=== PATIENT | female | born 1985 | race African-American/Black ===

== ENCOUNTER 2016-12-22 15:32 | Emergency (ER) | payer SELFPAY ==
--- NOTE | 2016-12-22 15:43 | PDOC ---
History of Present Illness - General History Source: Patient Exam Limitations: No Limitations - History of Present Illness Initial Comments: 12/22/16 16:22 Patient is a 31 year old female with a significant past medical history of who presents to the ED with complaints of left wrist pain. Patient reports pain began one week ago while lifting a dresser up a flight of stairs when sharp pain went up through arm. She reports putting the wrist in a immobilizer and wrapping for one week. She states she was unable to close hand fully after removing wrapping. Denies chest pain, SOB. Denies headache, fever. Denies nausea, vomiting. Denies any other symptoms. Allergies: None Social history: Current day smoker (1 cigarette per day). No alcohol. No illicit drugs. Surgical history: No surgical history PMD: None <Adalid Acosta - Last Filed: 12/22/16 16:22> <Lexi Khalil - Last Filed: 12/22/16 17:48> - General Chief Complaint: Pain Stated Complaint: LEFT ARM PAINPAIN Time Seen by Provider: 12/22/16 15:42 Past History <Adalid Acosta - Last Filed: 12/22/16 16:22> - Psycho/Social/Smoking Cessation Hx Anxiety: No Suicidal Ideation: No Smoking Status: Yes Smoking History: Current every day smoker Have you smoked in the past 12 months: Yes Number of Cigarettes Smoked Daily: 2 'Breaking Loose' booklet given: 08/19/15 <Lexi Khalil - Last Filed: 12/22/16 17:48> - Past Medical History Allergies/Adverse Reactions: Allergies Allergy/AdvReac Type Severity Reaction Status Date / Time No Known Allergies Allergy Verified 12/22/16 15:44 Home Medications: Ambulatory Orders No Home Medications 0 dose .ROUTE UTDICT 01/02/12 Review of Systems - Review of Systems Able to Perform ROS?: Yes Comments:: 12/22/16 16:22 GENERAL/CONSTITUTIONAL: No fever or chills. No weakness. HEAD, EYES, EARS, NOSE AND THROAT: No change in vision. No ear pain or discharge. No sore throat. CARDIOVASCULAR: No chest pain or shortness of breath. RESPIRATORY: No cough, wheezing, or hemoptysis. GASTROINTESTINAL: No nausea, vomiting, diarrhea or constipation. GENITOURINARY: No dysuria, frequency, or change in urination. MUSCULOSKELETAL: + Left wrist pain. +Left arm pain. No joint or muscle swelling. . No neck or back pain. SKIN: No rash NEUROLOGIC: No headache, vertigo, loss of consciousness, or change in strength/ sensation. ENDOCRINE: No increased thirst. No abnormal weight change. HEMATOLOGIC/LYMPHATIC: No anemia, easy bleeding, or history of blood clots. ALLERGIC/IMMUNOLOGIC: No hives or skin allergy. All Other Systems: Reviewed and Negative <Adalid Acosta - Last Filed: 12/22/16 16:22> *Physical Exam - Vital Signs Last Vital Signs Temp Pulse Resp BP Pulse Ox 99.1 F 101 H 18 157/85 99 12/22/16 15:34 12/22/16 15:34 12/22/16 15:34 12/22/16 15:34 12/22/16 15:34 - Physical Exam Comments: 12/22/16 16:22 GENERAL: Awake, alert, and fully oriented, in no acute distress HEAD: No signs of trauma EYES: PERRLA, EOMI, sclera anicteric, conjunctiva clear ENT: Auricles normal inspection, hearing grossly normal, nares patent, oropharynx clear without exudates. Moist mucosa NECK: Normal ROM, supple, no lymphadenopathy, JVD, or masses LUNGS: Breath sounds equal, clear to auscultation bilaterally. No wheezes, and no crackles HEART: Regular rate and rhythm, normal S1 and S2, no murmurs, rubs or gallops ABDOMEN: Soft, nontender, normoactive bowel sounds. No guarding, no rebound. No masses EXTREMITIES: +Left wrist neurovascularly intact. + Able to flex and extend against resistance in all four fingers and thumb in the PIP and DIP joint. + discomfort with supination, but able to actively supinate. Normal range of motion, no edema. No clubbing or cyanosis. No cords, erythema, or tenderness NEUROLOGICAL: Cranial nerves II through XII grossly intact. Normal speech, normal gait SKIN: Warm, Dry, normal turgor, no rashes or lesions noted. <Adalid Acosta - Last Filed: 12/22/16 16:22> ED Treatment Course - ADDITIONAL ORDERS Additional order review: Laboratory Results 12/22/16 03:51 Urine HCG, Qual Negative <Adalid Acosta - Last Filed: 12/22/16 16:22> Medical Decision Making - Medical Decision Making 12/22/16 17:21 Pt presents to the ED complaining of a one week history of L wrist and hand pain. Patient reports straining her hand and wrist while carrying a dresser. States that since the injury, she has been having pain of her hand and forearm that is worst in her thumb. Denies other injuries. Patient has been using a wrist immobilizer, but continuing to do her daily activities. Has pain with complete flexion of all 4 fingers and thumb and with supination. Although she has discomfort with these motions, patient is able to do them against resistance , making tendon injury less likely. Xrays of the hand and wrist are negative for fracture on my read. Will discharge home with pain control and follow up with orthopedics for persistent symptoms. <Lexi Khalil - Last Filed: 12/22/16 17:48> *DC/Admit/Observation/Transfer - Attestations Scribe Attestion: 12/22/16 16:23 Documentation prepared by Adalid Acosta, acting as medical microbiologist for Lexi Khalil MD. <Adalid Acosta - Last Filed: 12/22/16 16:22> - Discharge Dispostion Admit: No <Lexi Khalil - Last Filed: 12/22/16 17:48> Diagnosis at time of Disposition: Left wrist sprain Qualifiers: Encounter type: initial encounter Qualified Code(s): S63.502A - Unspecified sprain of left wrist, initial encounter - Discharge Dispostion Disposition: HOME Condition at time of disposition: Good - Referrals Referrals: Trey Jacinto MD [Staff Physician] - (follow up with Dr. Jacinto if you still have pain after one week. ) - Patient Instructions Printed Discharge Instructions: Smoking Cessation, DI for Wrist Sprain Additional Instructions: return to the ED for new or changing symptoms, severe pain, unable to move your wrist, fingers or thumb. Return for worsening pain and swelling of your hand or wrist. Follow up with orthopedics if you continue to have pain after one week.
[2016-12-22 15:47] VITALS: TEMP 99.1; BMI 31.8
[2016-12-22 17:29] VITALS: BP 128/77; PULSE 70
== END 2016-12-22 17:56 | disposition home or self-care (01) ==
LOC: FER 15:32
DX: S63.502A Unspecified sprain of left wrist, initial encounter (principal); X58.XXXA Exposure to other specified factors, initial encounter; Y93.89 Activity, other specified; Y92.9 Unspecified place or not applicable
CPT/HCPCS: 73110-TC-LT; 73130-TC-LT; 84703; 99282-25

== ENCOUNTER 2018-04-17 05:03 | Emergency (ER) | payer SELFPAY ==
[2018-04-17 05:09] VITALS: BMI 32.9
[2018-04-17 05:14] VITALS: BP 126/83; PULSE 60
[2018-04-17] MEDS ORDERED: KETOROLAC TROMETHAMINE 60 MG/2 ML VIAL IM ONE (05:25)
--- NOTE | 2018-04-17 05:25 | PDOC ---
History of Present Illness - General Chief Complaint: Pain, Acute Stated Complaint: NECK PAIN X 5 DAYS Time Seen by Provider: 04/17/18 05:24 - History of Present Illness Initial Comments: This 32-year-old woman with a history of untreated thyroid issues/ uterine fibroids/glaucoma presents with neck soreness/right upper back for for a few days. Patient works as a cat and dog bather; she has frequent neck discomfort but describes more severe pain in the last few days. No known direct trauma or severe overuse. She has been using a soft foam collar with some relief until last evening when pain became more severe She had a brief episode of numbness of her right upper arm last evening; this resolved spontaneously prior to presentation.. Patient has been taking ibuprofen 800 mg 3 times a day for the last few days. Past History - Past Medical History Allergies/Adverse Reactions: Allergies Allergy/AdvReac Type Severity Reaction Status Date / Time No Known Allergies Allergy Verified 04/17/18 05:05 Home Medications: Ambulatory Orders No Home Medications 0 dose .ROUTE UTDICT 01/02/12 Tizanidine HCl 2 mg PO TID PRN #12 tablet 04/17/18 COPD: No Psychiatric Problems: Yes (anxiety,depression) Other medical history: FIBROIDS, GLAUCOMA - Suicide/Smoking/Psychosocial Hx Smoking Status: Yes Smoking History: Current every day smoker Have you smoked in the past 12 months: Yes Number of Cigarettes Smoked Daily: 2 Information on smoking cessation initiated: Yes 'Breaking Loose' booklet given: 08/19/15 Hx Alcohol Use: No Drug/Substance Use Hx: Yes (WEED TWICE A WEEK) Substance Use Type: None Review of Systems - Review of Systems Able to Perform ROS?: Yes Comments:: 12 point review of systems is negative except for what is noted in the history of present illness *Physical Exam - Vital Signs Last Vital Signs Temp Pulse Resp BP Pulse Ox 60 18 126/83 100 04/17/18 05:13 04/17/18 05:13 04/17/18 05:13 04/17/18 05:13 - Physical Exam Comments: GENERAL: Adult female, alert and oriented 3, in mild distress secondary to neck soreness HEAD: Normal with no signs of trauma. EYES: PERRLA, EOMI, sclera anicteric, conjunctiva clear. ENT: Ears normal, nares patent, oropharynx clear without exudates. Moist mucous membranes. NECK: Pain with lateral rotation of head bilaterally, supple without lymphadenopathy, JVD, or masses. No tenderness of central vertebral bodies Moderate spasm/tenderness of cervical paraspinal muscles bilaterally Mild tenderness of bilateral trapezius muscles right greater than left LUNGS: Breath sounds equal, clear to auscultation bilaterally. No wheezes, and no crackles. EXTREMITIES: Normal range of motion, no edema. No clubbing or cyanosis. No erythema, or tenderness. NEUROLOGICAL: Cranial nerves II through XII grossly intact. Normal speech. No focal neurological deficits. MUSCULOSKELETAL: Back non-tender to palpation, no CVA tenderness SKIN: Warm, Dry, normal turgor, no rashes or lesions noted. Moderate Sedation - Procedure Monitoring Vital Signs: Procedure Monitoring Vital Signs Temperature Pulse Rate 60 04/17/18 05:13 Respiratory Rate 18 04/17/18 05:13 Blood Pressure 126/83 04/17/18 05:13 O2 Sat by Pulse Oximetry (%) 100 04/17/18 05:13 Medical Decision Making - Medical Decision Making Clinical presentation could be consistent with cervical strain/muscle spasms. 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 The patient understands this. She states that she can stay out from work today Today, we will give the patient Toradol 60 mg IM with a prescription for tizanidine 2 mg up to 3 times a day as needed for muscle spasm. She should continue the local warmth to the muscles that are spasmed. She also should continue to use her soft collar as needed. Since patient does not have insurance, she is familiar with the [facility] clinic system. The patient states that she will follow-up with orthopedics/spinal clinic there. She should return to the emergency room if she has severe pain or experiences persistent weakness/numbness of her extremities *DC/Admit/Observation/Transfer Diagnosis at time of Disposition: Cervical strain Qualifiers: Encounter type: initial encounter Qualified Code(s): S16.1XXA - Strain of muscle, fascia and tendon at neck level, initial encounter - Discharge Dispostion Disposition: HOME Condition at time of disposition: Stable - Prescriptions Prescriptions: Tizanidine HCl 2 mg PO TID PRN #12 tablet PRN Reason: Muscle Spasms - Referrals - Patient Instructions Printed Discharge Instructions: DI for Neck Pain Additional Instructions: Local warmth to area as discussed use soft collar as needed Continue ibuprofen as previously; always take with food Tizanidine 2 mg up to 3 times a day as needed for muscle spasm Avoid strenuous activity of the upper body for the next 5-7 days; no work today Follow-up [facility] clinic system as discussed Return to ER if you have persistent, severe pain or experiences weakness/ persistent numbness of arms - Post Discharge Activity
== END 2018-04-17 05:35 | disposition home or self-care (01) ==
LOC: FER 05:03
PROC: 3E0233Z Introduction of Anti-inflammatory into Muscle, Percutaneous Approach (ICD-10-PCS; principal; 2018-04-17)
DX: S16.1XXA Strain of muscle, fascia and tendon at neck level, initial encounter (principal); X58.XXXA Exposure to other specified factors, initial encounter; Y93.9 Activity, unspecified; Y92.9 Unspecified place or not applicable
CPT/HCPCS: 99281-25

== ENCOUNTER 2018-09-18 08:07 | Emergency (ER) | payer SELFPAY | END 2018-09-18 08:53 | disposition home or self-care (01) | LOC: FER 08:07 ==

== ENCOUNTER 2019-10-17 00:18 | Emergency (ER) | payer SELFPAY ==
[2019-10-17 00:24] VITALS: BP 148/103; PULSE 93; TEMP 99.1; BMI 31.8
[2019-10-17] MEDS ORDERED: SODIUM CHLORIDE 1,000 ML IV ONE (00:39)
[2019-10-17] MEDS ORDERED: ONDANSETRON 4 MG/2 ML VIAL IVPB ONE (00:39)
--- NOTE | 2019-10-17 00:41 | PDOC ---
History of Present Illness - General Chief Complaint: Nausea/Vomiting Stated Complaint: NAUSEA Time Seen by Provider: 10/17/19 00:33 History Source: Patient Exam Limitations: No Limitations - History of Present Illness Initial Comments: 10/17/19 00:36 This is a 34-year-old female who comes in complaining of some nausea and vomiting x1 day. Patient said that she does not have any abdominal pain. But then clarified it when she said she does have large uterine fibroids and they can be painful at times. Patient says she also has a history of anemia and actually is here today because she wants to make sure her blood counts are normal to low. Patient denies any fever, chills, diarrhea Allergies: as per nursing notes Past Medical History: Uterine fibroids per HPI Social history: Lives with family. No smoking. No alcohol. No illicit drugs. Surgical history: None General: No fevers or chills, no weakness, no weight loss HEENT: No change in vision. No sore throat,. No ear pain CardioVascular: no chest discomfort. No shortness of breath Respiratory:No cough, or wheezing. Gastrointestinal: + nausea, +vomiting, no diarrhea or constipation, No rectal bleeding Genitourinary: No dysuria, hematuria, or frequency Musculoskeletal: No joint or muscle pain or swelling Neurologic: No headache, vertigo, dizziness or loss of consciousness Psychiatric: nor depression Skin: No rashes or easy bruising Endocrine: no increased thirst or abnormal weight change Allergic: no skin or latex allergy All other systems reviewed and normal GENERAL: The patient is awake, alert, and fully oriented, in no acute distress. HEENT:Head is normal with no signs of trauma. Eyes: Pupils equal, round and reactive to light, Ears, and Throat are normal. Neck is supple. No Lymphade nopathy. EXTREMITIES:atraumatic, Normal range of motion, no edema. NEUROLOGICAL: Normal speech, normal gait. PSYCH: Normal mood, normal affect. SKIN: Warm, Dry, normal turgor, no rashes or lesions noted. Patient patient feels better after fluids and Zofran. Patient has had no further vomiting able to tolerate p.o.'s patient is not anemic patient discharged we will follow-up with her primary care doctor Past History - Medical History Allergies/Adverse Reactions: Allergies Allergy/AdvReac Type Severity Reaction Status Date / Time No Known Allergies Allergy Verified 04/17/18 05:05 Home Medications: Ambulatory Orders Ibuprofen 600 mg PO PRN PRN 10/17/19 Anemia: Yes COPD: No Disorders: Yes (FIBROIDS) Psychiatric Problems: Yes (anxiety,depression) - Psycho-Social/Smoking History Smoking Status: Yes Smoking History: Never smoked Have you smoked in the past 12 months: Yes Number of Cigarettes Smoked Daily: 2 'Breaking Loose' booklet given: 08/19/15 *Physical Exam - Vital Signs Last Vital Signs Temp Pulse Resp BP Pulse Ox 99.1 F 93 H 16 148/103 H 100 10/17/19 00:20 10/17/19 00:20 10/17/19 00:20 10/17/19 00:20 10/17/19 00:20 ED Treatment Course - LABORATORY CBC & Chemistry Diagram: 10/17/19 00:40 10/17/19 00:40 Discharge - Discharge Information Problems reviewed: Yes Clinical Impression/Diagnosis: Nausea & vomiting Qualifiers: Vomiting type: unspecified Vomiting Intractability: non-intractable Qualified Code(s): R11.2 - Nausea with vomiting, unspecified Condition: Stable Disposition: HOME - Admission No - Follow up/Referral - Patient Discharge Instructions Additional Instructions: Return to the emergency department immediately with ANY new, persistent or wo rsening symptoms. Continue any medications as previously prescribed by your physician. You should follow up with your primary doctor as soon as possible regarding today's emergency department visit. . Please make sure your doctor reviews the results of your emergency evaluation. Thank you for coming to the Emergency Department today for your care. It was a pleasure to see you today. Please note that your evaluation is INCOMPLETE until you follow-up with your doctor. - Post Discharge Activity
[2019-10-17] MEDS ORDERED: ONDANSETRON 4 MG/2 ML VIAL ONE (00:44)
[2019-10-17 01:31] LABS: BASO % 0.6 % (0-2.0); EOS % 2.5 % (0-4.5); HEMATOCRIT 34.2 % (32.4-45.2); LYMPH % 28.1 % (8-40); MCH 25.3 pg (25.7-33.7); MEAN CELL VOLUME 79.1 fl (80-96); MEAN PLT VOLUME 9.1 fl (7.5-11.1); MONO % 8.3 % (3.8-10.2); NEUT % 60.5 % (42.8-82.8); PLATELET COUNT 231 K/MM3 (134-434); RBC 4.33 M/mm3 (3.60-5.2); RDW 15.7 % (11.6-15.6); WHITE BLOOD COUNT 7.6 K/mm3 (4.0-10.0)
[2019-10-17 01:52] LABS: ALBUMIN 3.9 g/dl (3.4-5.0); BILIRUBIN,TOTAL 0.6 mg/dL (0.2-1); BLOOD UREA NITROGEN 14.1 mg/dL (7-18); POTASSIUM 4.4 mmol/L (3.5-5.1); TOT PROT 7.5 g/dl (6.4-8.2)
== END 2019-10-17 02:27 | disposition home or self-care (01) ==
LOC: FER 00:18
PROC: 3E0337Z Introduction of Electrolytic and Water Balance Substance into Peripheral Vein, Percutaneous Approach (ICD-10-PCS; principal; 2019-10-17)
PROC: 3E033GC Introduction of Other Therapeutic Substance into Peripheral Vein, Percutaneous Approach (ICD-10-PCS; principal; 2019-10-17)
DX: R11.2 Nausea with vomiting, unspecified (principal)
CPT/HCPCS: 36415; 80053; 85025; 99284-25